=== PATIENT | male | born 1975 | race Caucasian/White ===

== ENCOUNTER 2023-05-23 05:08 | Day surgery (SDC) | payer BC, OTHER ==
[2023-05-17 11:32] VITALS: BMI 31.8
[2023-05-23 06:46] VITALS: RESP 20
[2023-05-23] MEDS ORDERED: PROPOFOL 20 ML ONE (07:05)
[2023-05-23] MEDS ORDERED: MIDAZOLAM HCL 2 MG/2 ML SINGLE DOSE VIAL ONE ×2 (07:06→07:49)
[2023-05-23] MEDS ORDERED: BACITRACIN ZINC 15 GM TUBE TOPICAL OINTMENT ONE (07:26)
[2023-05-23] MEDS ORDERED: ceFAZolin SODIUM 1 GM VIAL IVPB ONE (07:50)
[2023-05-23] MEDS ORDERED: LIDOCAINE HCL 1%, 10 MG/ML (20ML VIAL) INF ONE (07:53)
[2023-05-23] MEDS ORDERED: ONDANSETRON 4 MG/2 ML VIAL ONE (08:18)
[2023-05-23] MEDS ORDERED: KETOROLAC TROMETHAMINE 30 MG/1 ML VIAL ONE (08:18)
[2023-05-23] MEDS ORDERED: DEXAMETHASONE SOD PHOSPHATE 4 MG/1 ML VIAL ONE (08:18)
[2023-05-23] MEDS ORDERED: ceFAZolin SODIUM 1 GM VIAL ONE (08:18)
[2023-05-23] MEDS ORDERED: oxyCODONE HCL 5 MG TABLET PO PRN (08:28)
[2023-05-23] MEDS ORDERED: DEXTROSE 5%-0.45% SALINE 1,000 ML IV SCH (08:30)
[2023-05-23 10:18] VITALS: BP 102/60; PULSE 62; TEMP 97.8
== END 2023-05-23 10:23 | disposition home or self-care (01) ==
LOC: JASU-SURG 05:08
PROVIDERS: ATTEND Urology
PROC: 0VBK0ZZ Excision of Left Epididymis, Open Approach (ICD-10-PCS; principal; 2023-05-23 07:30)
DX: N43.40 Spermatocele of epididymis, unspecified (principal)
CPT/HCPCS: 88304-TC

== ENCOUNTER 2024-08-12 01:14 | Emergency (ER) | payer BC, OTHER ==
[2024-08-12 01:27] VITALS: BP 118/68; PULSE 55; RESP 20; TEMP 98.6; BMI 31.4
[2024-08-12 02:43] LABS: BASO % 0.2 % (0-2.0); EOS % 0.8 % (0-4.5); HEMATOCRIT 38.5 % (35.4-49); HEMOGLOBIN 13.5 GM/dL (11.7-16.9); LYMPH % 13.1 % (8-40); MCH 28.3 pg (25.7-33.7); MCHC 35.1 g/dl (32.0-35.9); MEAN CELL VOLUME 80.5 fl (80-96); MEAN PLT VOLUME 7.5 fl (7.5-11.1); MONO % 4.6 % (3.8-10.2); NEUT % 81.3 % (42.8-82.8); PLATELET COUNT 164 10^3/uL (134-434); RBC 4.79 M/mm3 (4.00-5.60); RDW 12.9 % (11.9-15.9); WHITE BLOOD COUNT 8.8 K/mm3 (4.0-10.0)
[2024-08-12] MEDS ORDERED: FAMOTIDINE 20 MG/50 ML IVPB 20 MG/50 ML MG IVPB ONE (02:43)
[2024-08-12] MEDS ORDERED: ACETAMINOPHEN INJECTION 100 ML ONE (02:43)
[2024-08-12] MEDS: ACETAMINOPHEN 1000 MG/100 ML BAG IVPB ONE (02:48)
[2024-08-12] MEDS: FAMOTIDINE 20 MG/50 ML IVPB 20 MG/50 ML MG IVPB ONE (02:58)
[2024-08-12 03:04] LABS: POTASSIUM 3.6 mmol/L (3.5-5.1)
[2024-08-12 03:07] LABS: ALBUMIN 3.8 g/dl (3.4-5.0); BLOOD UREA NITROGEN 21.8 mg/dL (7-18)
[2024-08-12 03:10] LABS: CREATININE 1.1 mg/dL (0.55-1.3)
[2024-08-12 03:12] LABS: BILIRUBIN,TOTAL 0.4 mg/dL (0.2-1); TOT PROT 6.5 g/dl (6.4-8.2)
[2024-08-12 03:59] LABS: HIV INTERPRETATION NEGATIVE (NEGATIVE)
[2024-08-12] MEDS ORDERED: PIPERACILLIN/TAZOB 4.5 GM 4.5 GM/100 ML BAG IVPB ONE (05:05)
[2024-08-12] MEDS: PIPERACILLIN/TAZOB 4.5 GM 4.5 GM in DEXTROSE 5%-WATER 100 ML IVPB ONE (05:22)
== END 2024-08-12 05:34 | disposition left against medical advice (07) ==
LOC: JER 01:14
DX: K80.20 Calculus of gallbladder without cholecystitis without obstruction (principal); R10.13 Epigastric pain; R10.11 Right upper quadrant pain
CPT/HCPCS: 36415; 71046-TC-FY; 76705-TC; 80053; 83690; 83735; 84484; 85025; 86803; 87389; 93005; 93010; 99285-25; J0131